=== PATIENT | male | born 1965 | race Caucasian/White ===

== ENCOUNTER 2018-07-08 15:34 | Inpatient (IN) | payer MEDICARE, MEDICAID ==
[~2018-07-08] VITALS: Ht 182.9 cm; Wt 84.4 kg
[2018-07-08 15:45] VITALS: BP 117/72
[2018-07-08] MEDS ORDERED: PERCOCET 7.5-31 EACH PO (15:53)
[2018-07-08] MEDS ORDERED: ZOFRAN ODT4 MG DISSOLVE (15:53)
[2018-07-08 16:10] LABS: ABSOLUTE BASOPHILS 0.1 thou/uL (0.0-0.2); ABSOLUTE EOSINOPHILS 0.1 thou/uL (0.0-0.7); ABSOLUTE LYMPHOCYTES 1.8 thou/uL (0.8-5.3); ABSOLUTE MONOCYTES 0.5 thou/uL (0.0-1.2); ABSOLUTE NEUTROPHILS 9.2 thou/uL (1.6-8.1); BASOPHILS 0.9 %; EOSINOPHILS 0.7 %; HEMATOCRIT 41.9 % (42.0-52.0); HEMOGLOBIN 13.9 gm/dL (14.0-18.0); LYMPHOCYTES 15.3 %; MCH 26.2 pg (26.0-34.0); MCHC 33.1 g/dL (28.0-37.0); MONOCYTES 4.3 %; NUCLEATED RBCS 0 /100WBC; PLATELET COUNT* 387 thou/uL (150-400); POLYS 78.8 %; RBC 5.31 mil/uL (4.50-6.00); RDW-CV 16.5 % (10.5-14.5); WBC 11.6 thou/uL (4.0-11.0)
[2018-07-08 16:21] LABS: APTT 28.9 Seconds (25.0-31.3); PROTIME 10.3 Seconds (9.20-11.50)
[2018-07-08 16:24] LABS: ANION GAP 9 mmol/L (7-16); BUN 13 mg/dL (7-18); CALCIUM 9.3 mg/dL (8.5-10.1); CHLORIDE 103 mmol/L (98-107); CO2 24 mmol/L (21-32); GLUCOSE 98 mg/dL (70-99); SODIUM 136 mmol/L (136-145)
[2018-07-08 16:34] LABS: ALBUMIN 3.5 g/dL (3.4-5.0); ALKALINE PHOSPHATASE 105 U/L (46-116); NT-PRO BRAIN NAT PEPTIDE 97 pg/mL (<300); SGOT 15 U/L (15-37); SGPT 13 U/L (30-65); TOTAL BILIRUBIN 0.5 mg/dL (<0.1-1.0); TOTAL PROTEIN 7.5 g/dL (6.4-8.2); TROPONIN-I LEVEL <0.06 ng/mL (<0.06)
[2018-07-08 17:10] LABS: URINE BILIRUBIN NEGATIVE (Negative); URINE BLOOD NEGATIVE (Negative); URINE CLARITY CLEAR; URINE COLOR YELLOW; URINE GLUCOSE-RANDOM NEGATIVE (Negative); URINE KETONES NEGATIVE (Negative); URINE LEUKOCYTES-REFLEX NEGATIVE (Negative); URINE NITRITE-REFLEX NEGATIVE (Negative); URINE PROTEIN NEGATIVE (Negative); URINE UROBILINOGEN 0.2 E.U./dl (0.2-1.0)
--- NOTE | 2018-07-08 21:30 | NUR ---
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 NS 150CC/HR VIA INFUSION PUMP STARTED ORDERED. SPOKE WITH DR MARIE VIA TELEPHONE UPDATED PT STATUS AND REQUESTS FOR PAIN AND ANXIETY MEDICATION, NEW ORDER RECEIVED FOR TORADOL 30MG IVP X1. NEW ORDER COMMUNICATED WITH PT, VISTRIL ALSO GIVEN ORDERED. PT CONTINUES TO REQUEST FURTHER PAIN AND ANXIETY MEDICATIONS. EDUCATED HR TO LOW TO FOR FURTHER ANTIANXIETY AND PAIN MEDICATIONS. EMOTIONAL SUPPORT PROVIDED. ROLLING LEFT TO RIGHT SIDE STATES CANT GET COMFORTABLE OR RELAX. TAKING OFF BLOOD PRESSURE CUFF AND THROWING IT ON FLOOR, EDCUCATED NEED TO KEEP BLOOD PRESSURE CUFF FOR CRITICAL MONITORING, ENCOURAGED RELAXATION TECHNIQUES. ROOM DARK AND QUIET, DECREASED STIMULI. CALL LIGHT IN REACH, WILL CONTINUE TO MONITOR.
[2018-07-09] VITALS (11 sets, daily range): BP systolic 86–113; BP diastolic 47–69
[2018-07-09] MEDS ORDERED: OXYCODONE HCL20 M1 PO (06:07)
[2018-07-09] MEDS ORDERED: PROZAC10 MG PO (06:08)
--- NOTE | 2018-07-09 06:17 | NUR ---
CONSULT CALLED DR SALEH DUDE WRANGLER, REQUESTED AND RECEIVED CALL BACK, UPDTED STATUS INCLUDING HR RANGING FROM 30-50'S, ASYMPTOMATIC, NO NEW ORDERS RECEIVED AT PRESENT TIME. DUDE WRANGLER TO SEE IN AM.
--- NOTE | 2018-07-09 06:45 | NUR ---
AWAKE MOST OF NOC, CONTINUES C/O GENERALIZED PAIN 8-10 NUMERICAL SCALE, ACHING AND CONSTANT, TORADOL AND GABAPENTIN MINIMAL HELPFUL PER PT VERBLIZED. CONTINUES TO C/O ANXIETY, VISTERIL PRN GIVEN X2 WITH MINIMAL EFFECTS PER PT VERBALIZED. NPO SINCE MIDNIGHT PER ORDER, REMAINS SB HR RANGING FROM 27-55, WITH HR DECREASED TO TEENS WHEN SLEEPING, EASILY AWAKENED TO VERBAL STIMULI, HR INCREASING IMMEDIATLEY WITH STIMULUS, REMAINS ASYMPTOMATIC. AFEBRILE. NS 150CC/HR VIA INFUSION PUMP. REMOVING BLOOD PRESSURE CUFF INTERMITTENLY. USING CALL LIGHT FOR NEEDS.
--- NOTE | 2018-07-09 11:20 | NUR ---
PATIENT'S SON (CORA) UPDATED ON PLAN OF CARE. PATIENT'S EX- PRESENT DURING DISCUSSION WITH CORA. INFORMED OF PATIENT'S CURRENT CARE PLAN AND TE NEED TO REMAIN IN ICU TO OBSERVE FOR SYMPTOMS OF BRADYCARDIA. PATIENT'S SON STATED "IF SOMETHING WERE TO HAPPEN TO HIM, YOU WOULD DO EVERYTHING YOU CAN TO SAVE HIM?" INFORMED THAT PATIENT IS FULL CODE AND THAT EVERYTHING WILL BE DONE TO RESCUSTIATE HIM. PATIENT'S SON STATED "GOOD. I JUST WANTED TO MAKE SURE THERE WERE ENOUGH DOCTOR'S HERE THAT IF SOMETHING WERE TO HAPPEN THAT YOU COULD BRING HIM BACK. I AM VERY PARTICULAR ON HOSPITAL REVIEWS." PATIENT'S SON STATED "IF PATIENT WERE SOMEWHERE ELSE, HE WOULD ATTEMPT TO LEAVE." EDUCATED SON THAT PATIENT IS ALERT AND ORIENTED AND ABLE TO MAKE HIS OWN DECISIONS. STATED THAT PATIENT WOULD BE INFORMED OF ALL OF THE RISKS AND EDUCATED ABOUT THE IMPORTANCE OF TREATMENT, BUT THAT IF HE CONTINUED TO REFUSE TO STAY, HE HAS THE RIGHT TO MAKE HIS OWN DECISIONS AND IT WOULD BE CONSIDERED LEAVING AGAINST MEDICAL ADVICE. NOTIFIED SON THAT THIS NURSE WILL CALL LABOR CONTRACTOR TO SPEAK WITH THEM WHEN THE RETURN FROM [facility], AND THAT ALL RESOURCES AVAILBLE WILL BE GIVEN TO PATIENT PRIOR TO DISCHARGE. PATIENT'S SON AGREED TO MEET WITH LABOR CONTRACTOR.
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
--- NOTE | 2018-07-09 15:31 | EKG ---
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
--- NOTE | 2018-07-09 17:41 | 2DMMODE ---
[place] [address] 2 D/M-MODE ECHOCARDIOGRAM Name: CORA SPICER Room: [address] IN R#: [id number] Admission: 07/08/18 Attend Phys: Smooth Horta, Discharge: Date of : 61 Date of Service: 07/09/18 1741 Report #: [id number] THIS REPORT FOR: //name// APPROVED REPORT Study performed: 07/09/2018 09:29:29 EXAM: Comprehensive 2D, Doppler, and color-flow Echocardiogram Patient Location: In-Patient Room #: [facility] Status: routine BSA: 2.07 HR: 30 bpm BP: 123/52 mmHg Rhythm: Bradycardia Other Information Study Quality: Good Indications Bradycardia 2D Dimensions IVSd: 10.32 (7-11mm) LVOT Diam: 21.96 (18-24mm) LVDd: 49.35 mm PWd: 10.24 (7-11mm) Ascending Ao: 34.38 (22-36mm) LVDs: 29.78 (25-40mm) Aortic Root: 39.96 mm Volumes Left Atrial Volume (Systole) LA ESV Index: 31.10 mL/m2 Aortic Valve AoV Peak Scott.: 1.08 m/s AO Peak Gr.: 4.70 mmHg LVOT Max P.75 mmHg AO Mean Gr.: 2.08 mmHg LVOT Mean P.37 mmHg LVOT Max V: 0.83 m/s AO V2 VTI: 21.32 cm LVOT Mean V: 0.54 m/s KRIS (VTI): 3.67 cm2 LVOT V1 VTI: 20.63 cm Mitral Valve E/A Ratio: 1.16 MV Decel. Time: 265.21 ms MV E Max Scott.: 0.85 m/[place] [address] 2 D/M-MODE ECHOCARDIOGRAM Name: CORA SPICER Room: [address] IN .R.#: [id number] Admission: 07/08/18 Attend Phys: Smooth Horta, Discharge: Date of : 61 Date of Service: 07/09/18 1741 Report #: [id number] MV PHT: 76.91 ms MVA (PHT): 2.86 cm2 TDI E/Lateral E': 8.50 E/Medial E': 10.63 Medial E' Scott.: 0.08 m/s Lateral E' Scott.: 0.10 m/s Pulmonary Valve PV Peak Scott.: 0.87 m/s PV Peak Gr.: 3.01 mmHg Tricuspid Valve RAP Estimate: 5.00 mmHg TR Peak Gr.: 22.95 mmHg RVSP: 28.00 mmHg PA Pressure: 28.00 mmHg Left Ventricle The left ventricle is normal size. There is normal LV segmental wall motion. There is normal left ventricular wall thickness. Left ventricular systolic function is normal. LVEF is 55-60%. The left ventricular diastolic function is normal. Right Ventricle The right ventricle is normal size. The right ventricular systolic function is normal. Atria The left atrium size is normal. The right atrium size is normal. Aortic Valve The aortic valve is normal in structure. No aortic regurgitation is present. There is no aortic valvular stenosis. Mitral Valve The mitral valve is normal in structure. Trace mitral regurgitation. No evidence of mitral valve stenosis. Tricuspid Valve The tricuspid valve is normal in structure. Trace tricuspid regurgitation. No apparent pulmonary hypertension. Pulmonic Valve The pulmonary valve is normal in structure. There is no pulmonic [place] [address] 2 D/M-MODE ECHOCARDIOGRAM Name: CORA SPICER Room: [address] IN [facility]#: [id number] Admission: 07/08/18 Attend Phys: Smooth Horta, Discharge: Date of : 61 Date of Service: 07/09/18 1741 Report #: [id number] Great Vessels The aortic root is normal in size. IVC is normal in size and collapses >50% with inspiration. Pericardium There is no pericardial effusion. <Conclusion> The left ventricle is normal size. There is normal left ventricular wall thickness. Left ventricular systolic function is normal. LVEF is 55-60%. The left ventricular diastolic function is normal. Trace mitral regurgitation. Trace tricuspid regurgitation. No apparent pulmonary hypertension. IVC is normal in size and collapses >50% with inspiration. <ELECTRONICALLY SIGNED> By: Horacio Conde MD, FACC 07/09/181740 40 40 Horacio Conde MD, FACC /INF
--- NOTE | 2018-07-09 17:41 | NUR ---
PATIENT PROGRESSING TOWARDS GOALS. HR AT NORMAL LIMITS WHEN AWAKE AND CONVERSATING. WHEN PATIENT RESTING, HR 30S-40S. PATIENT ASYMPTOMATIC THROUGHOUT SHIFT. PATIENT GIVEN MULTIPLE MEDICATIONS FOR "ACHINESS", REFER TO EMAR. PATIENT GIVEN PERCOCET ONE TIME, PHYSICIAN REQUESTS TO MINIMIZE NARCOTIC USE. PATIENT FAMILY REQUESTING THAT HE STAY IN THE HOSPITAL UNTIL MONDAY, WHEN THEY HAVE SCHEDULED HIM A DOCTOR'S APPOINTMENT WITH A PHYSICIAN WHO CAN PRESCRIBE HIM SUBOXONE. INFORMED PATIENT'S SON THAT PHYSICIAN WILL ROUND IN THE AM AND DETERMINE THE PLAN FROM THERE. PATIENT'S SON REQUESTING PRINTOUTS OF PATIENT'S MEDICATION. EDUCATED PATIENT'S SON THAT PATIENT WOULD NEED TO REQUEST MEDICAL RECORDS FROM HOSPITAL. NOW PRESENT VISITING WITH PATIENT, NO CONCERNS VOICED BY OR PATIENT.
[2018-07-10 00:30] VITALS: BP 99/50
[2018-07-10 06:00] VITALS: BP 112/65
--- NOTE | 2018-07-10 07:00 | NUR ---
PROGRESSING TOWARDS GOALS. RESTING QUIELTY WITH EYES CLOSED OFF AND ON DURING NOC. FREQUENT REQUESTS FOR PAIN MEDICATION, C/O RIGHT HIP, LOWER BACK AND THIS AM GENERALIZED ABD CHRONIC PAIN, FREQUENT REQUESTS AND 100 PERCENT CONSUPTION FOOD AND SODA. REMAINS BRADYCARDIC HR 30'S TO 70'S, REMAINS ASYMPTOMATIC. DENIES NUMBNESS, TINGLING, DIZZYNESS, SOA, OR VERTIGO. KPAD FOR PAIN MANAGEMENT SOMEWHAT HELPFUL PER PT VERBALIZED. RESTING QUIETLY WITH EYES CLOSED EASALY AROUSABLE TO VERBAL STIMULI. USING CALL LIGHT FOR NEEDS.
[2018-07-10 08:00] VITALS: BP 116/59
[2018-07-10] MEDS ORDERED: BACTRIM DS TAB1 EACH PO (08:39)
[2018-07-10 09:50] VITALS: BP 112/65
--- NOTE | 2018-07-10 10:40 | NUR ---
WALKED PT WITH PULSE MONITOR. PT HR RANGED FROM 88-67 WHILE WALKING. WHILE PT RESTS IN BED HR RANGES FROM 49-55. PT SON WORRIED ABOUT PT BEING DISCHARGED. LEFT A MESSAGE FOR DR. IQBAL TO GIVE SON A CALL. SON WILL BE HERE TO LIP OF SHANK CUTTER FATHER AROUND 1300 THIS PM
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
== END 2018-07-10 13:25 | disposition home or self-care (01) | DRG 918 ==
LOC: M.ERS 15:34 → M.ICU 17:11 → M.TBA-ER 17:11 → M.2W 18:28 → M.ICU 19:52
PROVIDERS: Family Medicine
DX: T40.1X1A Poisoning by heroin, accidental (unintentional), initial encounter (principal); L03.114 Cellulitis of left upper limb; R00.1 Bradycardia, unspecified; F11.10 Opioid abuse, uncomplicated; F17.210 Nicotine dependence, cigarettes, uncomplicated; E11.9 Type 2 diabetes mellitus without complications; G89.29 Other chronic pain; F12.90 Cannabis use, unspecified, uncomplicated; Y92.89 Other specified places as the place of occurrence of the external cause; Z88.6 Allergy status to analgesic agent; Z91.040 Latex allergy status; Z98.84 Bariatric surgery status